=== PATIENT | male | born 1965 | race Caucasian/White ===

== ENCOUNTER 2021-09-24 08:00 | Outpatient (CLI) | payer OTHER ==
--- NOTE | 2021-09-24 18:56 | XRAY Report ---
PROCEDURE: Hand 3 View BILAT INDICATIONS: BILAT HAND PX TECHNIQUE: 3 views of the hand(s) acquired. COMPARISON: None FINDINGS: Bones: No fractures or dislocations. No suspicious bony lesions. Incidental 7 mm simple bone cyst in the right mid scaphoid. Probable enostosis or bone island in the right radial styloid measures 5 m m Soft tissues: No suspicious soft tissue calcifications. IMPRESSION: Incidental right scaphoid bone cyst Reviewed by: Yoseph Ricketts MD on 09/24/2021 5:55 PM [facility] Approved by: Yoseph Ricketts MD on 09/24/2021 5:55 PM [facility] Station ID: [id number]
== END 2021-09-24 23:59 | disposition home or self-care (01) ==
LOC: DI.WOS 08:00
PROVIDERS: ATTEND Orthopaedic Surgery
DX: M85.68 Other cyst of bone, other site (principal)

== ENCOUNTER 2023-08-28 19:54 | Emergency (ER) | payer OTHER ==
[2023-08-28 20:32] VITALS: O2SAT 100
[2023-08-28] MEDS ORDERED: NITROGLYCERIN SL 0.4 MG TABLET SL ONE (20:38)
--- NOTE | 2023-08-28 20:38 | ED Physician Documentation ---
PD HPI CHEST PAIN - Stated complaint Stated Complaint: CHEST PX - Chief complaint Chief Complaint: Cardiac - History obtained from History obtained from: Patient - Additional information Additional information: He has a history of borderline cholesterol, otherwise generally healthy. He developed chest pain with light activity starting 4 hours ago that feels like a chest pressure is along with cold sweat. He denies nausea, shortness of breath. He has a history of "flip-flopping heart" but no heart issues otherwise. PD PAST MEDICAL HISTORY - Past Medical History Past Medical History: Yes GI: Other - Past Surgical History Past Surgical History: Yes General: Appendectomy - Allergies Allergies/Adverse Reactions: Allergies Allergy/AdvReac Type Severity Reaction Status Date / Time No Known Drug Allergies Allergy Verified 08/28/23 20:37 - Social History Does the pt smoke?: No Smoking Status: Never smoker PD ED PE NORMAL - Vitals Vital signs reviewed: Yes (Hypertensive) - General General: Alert and oriented X 3, No acute distress - Neck Neck: Supple, no meningeal sign - Cardiac Cardiac: RRR, No murmur - Respiratory Respiratory: No respiratory distress, Clear bilaterally - Abdomen Abdomen: Non tender - Extremities Extremities: No edema, No calf tenderness / cord - Neuro Neuro: Alert and oriented X 3, Normal speech Results - Vitals Vitals: Vital Signs - 24 hr 08/28/23 08/28/23 20:22 20:49 Temperature 36.7 C Heart Rate 81 70 Respiratory 18 16 Rate Blood Pressure 184/113 H 123/95 H O2 Saturation 100 100 Oxygen O2 Source Room air - EKG (time done) 2025 EKG releavant findings:: EKG personally interpreted by author of this note. Relevant findings are: Rate: Rate (enter#) (69) Rhythm: NSR, LAE [place]: Normal Intervals: Normal [place] QRS: Normal Ischemia: ST elevation c/w ischemia (V2 through V5) Computer interpretation: Agree with computer - Labs Labs: Laboratory Tests 08/28/23 20:50 WBC 12.4 H RBC 4.80 Hgb 13.9 L Hct 43.5 MCV 90.6 MCH 29.0 MCHC 32.0 RDW 13.7 Plt Count 280 MPV 9.2 Neut # (Auto) 10.8 H Lymph # (Auto) 1.2 L [place] # (Auto) 0.4 Eos # (Auto) 0.0 Baso # (Auto) 0.0 Absolute Nucleated RBC 0.00 Nucleated RBC % 0.0 PD Medical Decision Making - ED course ED course: 57-year-old gentleman presents with an anterior STEMI. There was a delay to triage, and the EKG was done at 2025, viewed by me at 2027 and STEMI code called. He was excepted the [facility] ED by their ED physician. Medications ordered including aspirin 324 mg, atorvastatin 80 mg, heparin 5000 units IV push, 5 mg of IV metoprolol and 25 mg of oral metoprolol as well as nitroglycerin. - Critical Care Time(min): 32 Time Includes: Direct patient care, Review records, Reassess patient (Discussed CODE STATUS, full code with aggressive interventions.), Document care, Coordinate care, Medical consult, Family consult for tx dec Data interpretation: Labs, Pulse ox Procedures included in critical care time: Peripheral IV Procedures excluded from critical care time: EKG Departure - Departure Disposition: 02 Transfer Acute Care Hosp Clinical Impression: STEMI (ST elevation myocardial infarction) Qualifiers: Involved coronary artery: unspecified coronary artery Qualified Code(s): I21.3 - ST elevation (STEMI) myocardial infarction of unspecified site Condition: Critical Forms: PCP List
[2023-08-28] MEDS ORDERED: ASPIRIN CHEW 81 MG TABLET ONE (20:39)
[2023-08-28] MEDS ORDERED: METOPROLOL 5 MG/5 ML VIAL IVP ONE (20:39)
[2023-08-28] MEDS: METOPROLOL 5 MG/5 ML VIAL IVP STA (20:41)
[2023-08-28] MEDS: ATORVASTATIN 40 MG TABLET PO STA (20:44)
[2023-08-28] MEDS: METOPROLOL TARTRATE 50 MG TABLET PO STA (20:44)
[2023-08-28] MEDS: ASPIRIN CHEW 81 MG TABLET PO STA (20:45)
[2023-08-28] MEDS: HEPARIN 5,000 UNIT/ML VIAL IVP STA (20:46)
[2023-08-28 20:50] VITALS: BP 123/95
[2023-08-28] MEDS: HEPARIN 25000UNITS/500ML (D5W) 25,000 UNIT/500 ML BAG IV SCH (20:52)
[2023-08-28 20:59] LABS: BASOPHILS % (AUTO) 0.2 %; EOSINOPHILS % (AUTO) 0.1 %; HCT - HEMATOCRIT 43.5 % (42.0-52.0); HGB - HEMOGLOBIN 13.9 g/dL (14.0-18.0); LYMPHOCYTES # (AUTO) 1.2 10^3/uL (1.5-3.5); LYMPHOCYTES % (AUTO) 9.4 %; MEAN CORPUSCULAR VOLUME 90.6 fL (80.0-94.0); MEAN PLATELET VOLUME 9.2 fL (7.4-11.4); MONOCYTES # (AUTO) 0.4 10^3/uL (0.0-1.0); MONOCYTES % (AUTO) 3.1 %; NEUTROPHILS # (AUTO) 10.8 10^3/uL (1.5-6.6); NEUTROPHILS % (AUTO) 86.9 %; PLT - PLATELET COUNT 280 10^3/uL (130-450); RED CELL DISTRIBUTION WIDTH 13.7 % (12.0-15.0); WHITE BLOOD COUNT 12.4 x10^3/uL (4.8-10.8)
[2023-08-28 21:19] LABS: ALBUMIN 4.7 g/dL (3.2-5.5); ALBUMIN/GLOBULIN RATIO 1.6 (1.0-2.2); BILIRUBIN,TOTAL 0.4 mg/dL (0.2-1.0); CALCIUM 9.6 mg/dL (8.5-10.3); CREATININE 1.1 mg/dL (0.6-1.3); POTASSIUM 3.6 mmol/L (3.5-4.5); TOTAL PROTEIN 7.6 g/dL (6.4-8.9)
[2023-08-28 21:28] LABS: TROPONIN I HIGH SENSITIVITY 1961.6 ng/L (2.3-19.7)
[2023-08-28] MEDS: NITROGLYCERIN SL 0.4 MG TABLET SL STA (22:05)
== END 2023-08-28 21:30 | disposition short-term general hospital (02) ==
LOC: ED 19:54
DX: I21.3 ST elevation (STEMI) myocardial infarction of unspecified site (principal)
CPT/HCPCS: 36415; 80053; 83690; 84484; 85025; 93005; 96374; 96375; 99291; A9270